=== PATIENT | female | born 2005 | race Caucasian/White ===

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

== ENCOUNTER 2023-02-28 11:24 | Emergency (ER) | payer OTHER ==
[~2023-02-28] VITALS: Ht 165.1 cm; Wt 58.9 kg
[2023-02-28] MEDS ORDERED: TRILEPTAL300 MG PO (11:55)
[2023-02-28] MEDS ORDERED: BUSPAR10 MG PO (11:55)
[2023-02-28 13:10] LABS: BASO% 0.8 % (0-3); EOS% 7.1 % (0-8); HEMATOCRIT 35.8 % (37.0-47.0); HEMOGLOBIN 11.7 g/dl (12.0-16.0); LYMPH% 25.2 % (15-41); MEAN CELL VOLUME 90.4 fL CALC (80.0-100.0); MEAN CORPUSCULAR HGB 29.5 pG CALC (26.0-32.0); MEAN CORPUSCULAR HGB CONC 32.7 g/dL CAL (32.0-36.0); MONO% 8.9 % (2-13); NEUT# 3.74 thou/uL (2.00-7.15); RED BLOOD COUNT 3.96 mill/uL (4.20-5.60); RED CELL DISTRI WIDTH 12.7 % (11.5-15.5)
[2023-02-28 13:11] LABS: URINE BILIRUBIN - DIPSTICK NEGATIVE (NEGATIVE); URINE BLOOD DIPSTICK MODERATE (NEGATIVE); URINE COLOR YELLOW; URINE GLUCOSE - DIPSTICK NEGATIVE (NEGATIVE); URINE KETONE NEGATIVE (NEGATIVE); URINE LEUK ESTERASE NEGATIVE (NEGATIVE); URINE NITRITE - DIPSTICK NEGATIVE (Negative); URINE PH 6.5 (4.5-8.0); URINE PROTEIN - DIPSTICK TRACE mg/dL (NEG-TRACE); URINE UROBILINOGEN - DIPSTICK 0.2 E.U./dL (0.2)
[2023-02-28 13:20] LABS: URINE EPITHELIAL CELLS FEW EPI/hpf (0-FEW); URINE HYALINE CAST FEW lpf (NONE-RARE); URINE MUCUS FEW hpf (NONE-FEW)
[2023-02-28 13:21] LABS: ALKALINE PHOSPHATASE 56 u/l (38-126); ANION GAP 10 (6-22 (CALC)); BUN 4 mg/dL (8-21); BUN/CREATININE RATIO 6 (12-20 (CALC)); CARBON DIOXIDE 26 mmol/l (22-30); CHLORIDE 108 mmol/l (95-108); CREATININE 0.7 mg/dL (0.5-1.0); GFR FOR AFR.AMER. > 60 ML/MIN (>=60 (CALC)); GFR OTHER RACES > 60 ML/MIN (>=60 (CALC)); LIPASE 43 u/l (23-300); POTASSIUM 4.2 mmol/l (3.5-5.1); SGOT/AST 21 u/l (14-36); SODIUM 139 mmol/l (137-146); TOTAL PROTEIN 7.1 g/dL (6.3-8.2)
[2023-02-28 13:23] LABS: BILIRUBIN, TOTAL 0.7 mg/dL (0.02-1.3)
[2023-02-28] MEDS ORDERED: ONDANSETRON4 MG PO (14:56)
[2023-02-28] MEDS ORDERED: TAM75CAP PO (14:56)
[2023-02-28 15:16] VITALS: BP 107/70
== END 2023-02-28 15:33 | disposition home or self-care (01) | DRG 195 ==
LOC: ED 11:24
PROVIDERS: Nurse Practitioner
DX: J10.1 Influenza due to other identified influenza virus with other respiratory manifestations (principal); E28.2 Polycystic ovarian syndrome; F41.9 Anxiety disorder, unspecified; Z20.822 Contact with and (suspected) exposure to COVID-19

== ENCOUNTER 2023-03-08 17:30 | Emergency (ER) | payer OTHER ==
[~2023-03-08] VITALS: Ht 165.1 cm; Wt 59.0 kg
[~2023-03-08 17:30] MED LIST changes: +BUSPAR10 MG PO; +ONDANSETRON4 MG PO; +TRILEPTAL300 MG PO
[2023-03-08 17:57] VITALS: BP 133/84
[2023-03-08 18:00] VITALS: BP 129/75
[2023-03-08 18:34] LABS: URINE BILIRUBIN - DIPSTICK NEGATIVE (NEGATIVE); URINE BLOOD DIPSTICK NEGATIVE (NEGATIVE); URINE CLARITY CLEAR; URINE COLOR YELLOW; URINE GLUCOSE - DIPSTICK NEGATIVE (NEGATIVE); URINE KETONE Negative (NEGATIVE); URINE LEUK ESTERASE NEGATIVE (Negative); URINE NITRITE - DIPSTICK NEGATIVE (Negative); URINE PH 6.5 (4.5-8.0); URINE PROTEIN - DIPSTICK NEGATIVE (NEG-TRACE); URINE UROBILINOGEN - DIPSTICK 0.2 E.U./dL (0.2)
[2023-03-08 18:38] LABS: BASO% 0.6 % (0-3); EOS% 6.8 % (0-8); HEMATOCRIT 40.2 % (37.0-47.0); HEMOGLOBIN 13.1 g/dl (12.0-16.0); IMMATURE GRANULOCYTES 0.2 % (0.0-5.0); LYMPH% 23.8 % (15-41); MEAN CELL VOLUME 90.1 fL CALC (80.0-100.0); MEAN CORPUSCULAR HGB 29.4 pG CALC (26.0-32.0); MEAN CORPUSCULAR HGB CONC 32.6 g/dL CAL (32.0-36.0); MONO% 10.5 % (2-13); NEUT# 3.78 thou/uL (2.00-7.15); NEUT% 58.1 % (42-76); RED BLOOD COUNT 4.46 mill/uL (4.20-5.60); RED CELL DISTRI WIDTH 12.5 % (11.5-15.5)
[2023-03-08 18:49] LABS: ALBUMIN 4.7 g/dL (3.2-5.0); ALKALINE PHOSPHATASE 58 u/l (38-126); ANION GAP 13 (6-22 (CALC)); BILIRUBIN, TOTAL 0.7 mg/dL (0.02-1.3); BUN 7 mg/dL (8-21); BUN/CREATININE RATIO 10 (12-20 (CALC)); CARBON DIOXIDE 23 mmol/l (22-30); CHLORIDE 109 mmol/l (95-108); CREATININE 0.7 mg/dL (0.5-1.0); GFR FOR AFR.AMER. > 60 ML/MIN (>=60 (CALC)); GFR OTHER RACES > 60 ML/MIN (>=60 (CALC)); LIPASE 70 u/l (23-300); POTASSIUM 3.4 mmol/l (3.5-5.1); SGOT/AST 24 u/l (14-36); SODIUM 141 mmol/l (137-146); TOTAL PROTEIN 8.5 g/dL (6.3-8.2)
[2023-03-08 20:01] VITALS: BP 109/69
[2023-03-08] MEDS ORDERED: TRAMADOL HYDROC50 M1 PO (20:13)
[2023-03-08] MEDS ORDERED: NAPROXEN500 MG PO (20:13)
[2023-03-08] MEDS ORDERED: METHOCARBAMOL500 MG PO (20:13)
[2023-03-08 20:20] VITALS: BP 120/88
[2023-03-08 20:40] VITALS: BP 117/77
[2023-03-08 20:45] VITALS: BP 117/77
== END 2023-03-08 21:06 | disposition home or self-care (01) | DRG 552 ==
LOC: ED 17:30
PROVIDERS: Nurse Practitioner
DX: M54.50 Low back pain, unspecified (principal); R10.84 Generalized abdominal pain; F41.9 Anxiety disorder, unspecified; V54.6XXA Passenger in pick-up truck or van injured in collision with heavy transport vehicle or bus in traffic accident, initial encounter
CPT/HCPCS: Q9967

== ENCOUNTER 2023-03-12 21:16 | Emergency (ER) | payer OTHER ==
[~2023-03-12] VITALS: Ht 165.1 cm; Wt 59.0 kg
[~2023-03-12 21:16] MED LIST changes: +METHOCARBAMOL500 MG PO; +NAPROXEN500 MG PO; +TRAMADOL HYDROC50 M1 PO
[2023-03-12 21:54] VITALS: BP 111/75
[2023-03-12 22:00] VITALS: BP 110/67
[2023-03-12 23:07] LABS: BASO% 0.5 % (0-3); EOS% 8.3 % (0-8); HEMOGLOBIN 12.6 g/dl (12.0-16.0); IMMATURE GRANULOCYTES 0.2 % (0.0-5.0); LYMPH% 30.5 % (15-41); MEAN CELL VOLUME 90.3 fL CALC (80.0-100.0); MEAN CORPUSCULAR HGB 29.2 pG CALC (26.0-32.0); MEAN CORPUSCULAR HGB CONC 32.3 g/dL CAL (32.0-36.0); MONO% 9.6 % (2-13); NEUT# 4.22 thou/uL (2.00-7.15); NEUT% 50.9 % (42-76); RED BLOOD COUNT 4.32 mill/uL (4.20-5.60); RED CELL DISTRI WIDTH 12.3 % (11.5-15.5)
[2023-03-12 23:18] LABS: ALBUMIN 4.5 g/dL (3.2-5.0); ALKALINE PHOSPHATASE 54 u/l (38-126); ANION GAP 13 (6-22 (CALC)); BILIRUBIN, TOTAL 0.6 mg/dL (0.02-1.3); BUN 7 mg/dL (8-21); BUN/CREATININE RATIO 10 (12-20 (CALC)); CARBON DIOXIDE 23 mmol/l (22-30); CHLORIDE 107 mmol/l (95-108); CREATININE 0.7 mg/dL (0.5-1.0); GFR FOR AFR.AMER. > 60 ML/MIN (>=60 (CALC)); GFR OTHER RACES > 60 ML/MIN (>=60 (CALC)); POTASSIUM 3.5 mmol/l (3.5-5.1); SGOT/AST 28 u/l (14-36); SODIUM 140 mmol/l (137-146); TOTAL PROTEIN 8.1 g/dL (6.3-8.2)
[2023-03-12 23:30] VITALS: BP 111/75
== END 2023-03-12 23:30 | disposition left against medical advice (07) | DRG 206 ==
LOC: ED 21:16
PROVIDERS: Family Medicine
DX: M94.0 Chondrocostal junction syndrome [Tietze] (principal); F41.9 Anxiety disorder, unspecified; F31.9 Bipolar disorder, unspecified; E28.2 Polycystic ovarian syndrome

== ENCOUNTER 2023-04-30 17:28 | Emergency (ER) | payer OTHER ==
[~2023-04-30] VITALS: Ht 165.1 cm; Wt 63.5 kg
[2023-04-30 17:43] LABS: BASO% 0.7 % (0-3); EOS% 8.4 % (0-8); HEMATOCRIT 38.8 % (37.0-47.0); HEMOGLOBIN 12.9 g/dl (12.0-16.0); IMMATURE GRANULOCYTES 0.1 % (0.0-5.0); LYMPH% 26.3 % (15-41); MEAN CELL VOLUME 90.4 fL CALC (80.0-100.0); MEAN CORPUSCULAR HGB 30.1 pG CALC (26.0-32.0); MEAN CORPUSCULAR HGB CONC 33.2 g/dL CAL (32.0-36.0); MONO% 7.5 % (2-13); NEUT# 4.18 thou/uL (2.00-7.15); RED BLOOD COUNT 4.29 mill/uL (4.20-5.60)
[2023-04-30 17:44] VITALS: BP 120/78
[2023-04-30 17:48] LABS: URINE BILIRUBIN - DIPSTICK Negative (NEGATIVE); URINE BLOOD DIPSTICK Moderate (NEGATIVE); URINE GLUCOSE - DIPSTICK Negative (NEGATIVE); URINE KETONE Negative (NEGATIVE); URINE LEUK ESTERASE Negative (NEGATIVE); URINE NITRITE - DIPSTICK Negative (Negative); URINE PROTEIN - DIPSTICK Negative (NEG-TRACE); URINE SPECIFIC GRAVITY <=1.005; URINE UROBILINOGEN - DIPSTICK 0.2 E.U./dL (0.2)
[2023-04-30 17:49] LABS: URINE COLOR Yellow
[2023-04-30 17:54] LABS: URINE RBC 0-2 RBC/hpf (0-5)
[2023-04-30 17:57] LABS: ALBUMIN 4.6 g/dL (3.2-5.0); ALKALINE PHOSPHATASE 54 u/l (38-126); ANION GAP 10 (6-22 (CALC)); BILIRUBIN, TOTAL 0.7 mg/dL (0.02-1.3); BUN 5 mg/dL (8-21); BUN/CREATININE RATIO 7 (12-20 (CALC)); CARBON DIOXIDE 25 mmol/l (22-30); CHLORIDE 109 mmol/l (95-108); CREATININE 0.7 mg/dL (0.5-1.0); GFR FOR AFR.AMER. > 60 ML/MIN (>=60 (CALC)); GFR OTHER RACES > 60 ML/MIN (>=60 (CALC)); POTASSIUM 3.6 mmol/l (3.5-5.1); SGOT/AST 28 u/l (14-36); SODIUM 140 mmol/l (137-146); TOTAL PROTEIN 8.2 g/dL (6.3-8.2)
[2023-04-30 18:00] VITALS: BP 126/75
[2023-04-30 18:30] VITALS: BP 134/75
[2023-04-30 19:01] VITALS: BP 112/54
[2023-04-30 19:30] VITALS: BP 111/56
[2023-04-30] MEDS ORDERED: METRONIDAZOLE500 MG PO (20:09)
[2023-04-30 20:20] VITALS: BP 111/56
== END 2023-04-30 20:45 | disposition home or self-care (01) | DRG 759 ==
LOC: ED 17:28
PROVIDERS: Family Medicine
DX: N76.0 Acute vaginitis (principal); F41.9 Anxiety disorder, unspecified; E28.2 Polycystic ovarian syndrome